=== PATIENT | female | born 1980 | race Caucasian/White ===

== ENCOUNTER 2017-01-11 14:31 | Emergency (ER) | payer BC ==
--- NOTE | 2017-01-11 14:54 | ED.PDOC ---
History of Present Illness - General Chief Complaint: Headache Stated Complaint: neck pain Time Seen by Provider: 01/11/17 14:54 Source: patient, RN notes reviewed Exam Limitations: no limitations Additional Information: Annette Barrios 36 y/o female with history of migraine headaches states that she had sharp pains right side of her neck starting yesterday radiating to back of her head.no fever no blurry vision no history of head trauma - History of Present Illness Timing/Duration: 24 hours Quality: constant, pressure, sharp Head Injury Location: other - no head injury Recent Head Trauma: no recent headache/trauma, chronic headaches Improving Factors: nothing Worsening Factors: movement Associated Symptoms: denies symptoms Allergies/Adverse Reactions: Allergies NO KNOWN ALLERGY Allergy (Verified 01/11/17 14:56) Home Medications: Ambulatory Orders Diclofenac Sodium [Diclofenac Sodium Dr] 75 mg PO BID #14 tab 01/11/17 Nature-Throid PO DAILY 01/11/17 Tizanidine HCl [Zanaflex] 4 mg PO TID #14 cap 01/11/17 Review of Systems - Review of Systems Constitutional: States: no symptoms reported EENTM: States: no symptoms reported Respiratory: States: no symptoms reported Cardiology: States: no symptoms reported Gastrointestinal/Abdominal: States: no symptoms reported Genitourinary: States: no symptoms reported Musculoskeletal: States: neck pain Skin: States: no symptoms reported Neurological: States: no symptoms reported Endocrine: States: no symptoms reported Hematologic/Lymphatic: States: no symptoms reported Past Medical History (General) - Patient Medical History Hx Other PMH: Yes - migraine Surgical History: tonsillectomy - Activities of Daily Living Grooming Ability: Independent Eating (Feeding) Ability: Independent Toileting Ability: Independent - Female History Patient is a Female of Child Bearing Age (10 -59 yrs old): Yes Hx Last Menstrual Period: 01/09/17 Family Medical History - Family History Mother Family History: No Known Living Status: Still Living Hx Family Hypertension: Yes - several family members Hx Family Diabetes: Yes - several family members Hx Family;Other: migraine headaches Physical Exam - Physical Exam General Appearance: Anxious, No apparent distress Eyes, Ears, Nose, Throat Exam: PERRL/EOMI, normal ENT inspection, TMs normal Neck: non-tender, normal inspection, trachea midline, other - with painful rom Cardiovascular/Chest: normal peripheral pulses, regular rate, rhythm, no edema, no gallop, no JVD, no murmur Respiratory: chest non-tender, lungs clear, normal breath sounds, no respiratory distress Gastrointestinal/Abdominal: normal bowel sounds, non tender, soft, no organomegaly Back Exam: normal inspection, no CVA tenderness, no vertebral tenderness, muscle spasm - neck right side Coordination/Gait: negative Romberg's sign Motor/Sensory: no motor deficit, no sensory deficit, no pronator drift, negative Babinski's sign Skin Exam: warm/dry, normal color Lymphatic: no adenopathy Departure - Departure Clinical Impression: Torticollis, spasmodic Time of Disposition: 16:30 Disposition: Discharge to Home or Self Care Condition: Good Departure Forms: ED Discharge - Pt. Copy, Patient Portal Self Enrollment Instructions: DI for Torticollis Referrals: MALGORZATA MATAMOROS [Primary Care Provider] - 1-2 Weeks Prescriptions: Diclofenac Sodium [Diclofenac Sodium Dr] 75 mg PO BID #14 tab Tizanidine HCl [Zanaflex] 4 mg PO TID #14 cap Home Medications: Ambulatory Orders Diclofenac Sodium [Diclofenac Sodium Dr] 75 mg PO BID #14 tab 01/11/17 Nature-Throid PO DAILY 01/11/17 Tizanidine HCl [Zanaflex] 4 mg PO TID #14 cap 01/11/17 Additional Instructions: FOLLOW UP WITH PRIMARY MD IN ONE WEEK IF NEEDED
[2017-01-11 14:59] VITALS: TEMP 98.3; O2SAT 100
[2017-01-11] MEDS ORDERED: KETOROLAC TROMETHAMINE INJ 30 MG/ML VIAL IM ONE (15:10)
[2017-01-11] MEDS ORDERED: ORPHENADRINE CITRATE 30 MG/ML AMP IM ONE (15:10)
[2017-01-11] MEDS ORDERED: HYDROcodone 7.5MG/APAP 325MG 1 EA TAB PO ONE (15:11)
[2017-01-12 07:27] VITALS: BP 118/71
== END 2017-01-11 16:35 | disposition home or self-care (01) ==
LOC: ER 14:31
DX: G24.3 Spasmodic torticollis (principal)

== ENCOUNTER → 2017-11-03 | Outpatient (CLI) | payer BC ==
--- NOTE | 2017-11-03 21:49 | MRI ---
EXAM DESCRIPTION: Cervical Spine: MRI. CLINICAL HISTORY: CERVICALGIA COMPARISON: MRI lumbar spine without contrast on the same visit. TECHNIQUE: Multiplanar MRI, multiple sequences, non-contrast High-field. Cervical spine. FINDINGS: C4-5: Minimal disc desiccation and posterior midline bulge 2 mm but not abutting the cord. Mild canal narrowing bilateral neural foramina are patent. Normal facets. C5-6: Disc desiccation and minimal disc space loss. Tiny posterior midline bulge. Mild canal narrowing. Bilateral neural foramina are patent. Normal facets. C6-7: Disc desiccation. Tiny posterior midline bulge not abutting the cord. Right uncinate spur and mild neural foraminal narrowing. Mild canal narrowing. Left neuroforamen patent. Normal facets. Normal signal in the remaining discs with no bulging. Disc spaces preserved. Canal and neural foramina are patent. Facets are normal No cord compression or cord edema. Spine is normally lordotic. Atlantoaxial joint is unremarkable. Base of the cerebellar tonsils is above the foramen magnum. Paravertebral soft tissues negative. Vertebral bodies are not compressed at any level. Normal marrow signal in the remaining vertebral bodies and the posterior elements. IMPRESSION: 1. Minimal disc desiccation and posterior midline bulge at C4-5, C5-6, and C6-7. Minimal disc space loss at C5-6. Uncinate spur on the right at C6-7 with narrowing of the right neural foramen. Neuroforamen patent at other levels. No significant canal narrowing at these levels. Electronically signed by: José Alfredo MD 11/03/2017 9:48 PM [facility] Workstation: [id number]
--- NOTE | 2017-11-03 21:57 | MRI ---
EXAM DESCRIPTION: Lumbar Spine w/o Contrast MRI. CLINICAL HISTORY: LUMBAGO COMPARISON: LUMBAR TECHNIQUE: Multiplanar, multiple standard sequences, non contrast high-field MRI, lumbar spine. FINDINGS: L5-S1: Minimal disc desiccation. Disc space preserved with tiny bulge. Canal is patent. Posterior elements unremarkable. Moderate bilateral foraminal narrowing due to bony morphology; nearly stenotic. L4-5: Disc is unremarkable. No bulging. Posterior elements are negative. Mild bilateral foraminal narrowing. L3-4: Minimal disc desiccation and minimal disc space loss. Posterior midline 3 mm bulge. Right foramen is patent. Mild narrowing of the left foramen. Posterior elements are unremarkable. Remaining discs demonstrate normal signal. Canal and foramina are patent. Posterior elements unremarkable. Conus terminates at T12-L1. Paravertebral soft tissues are unremarkable. Normal marrow signal in the remaining vertebral bodies and the posterior elements. Vertebral bodies are not compressed at any level. IMPRESSION: 1. L3-4 disc desiccation. Small posterior midline bulge and minimal disc space loss. Mild canal narrowing; no foraminal stenosis. 2. L5-S1 disc desiccation with disc space maintained. Posterior tiny midline bulge. Mild canal narrowing. Bilateral foramina are nearly stenotic due to bony morphology. Electronically signed by: José Alfredo MD 11/03/2017 9:56 PM [facility] [employer] Workstation: [id number]
== END ==
LOC: MRI 08:31
PROVIDERS: ATTEND Nurse Practitioner
DX: M50.321 Other cervical disc degeneration at C4-C5 level (principal); M50.322 Other cervical disc degeneration at C5-C6 level; M50.323 Other cervical disc degeneration at C6-C7 level; M51.36 Other intervertebral disc degeneration, lumbar region; M54.5 Low back pain